=== PATIENT | male | born 1960 | race Caucasian/White ===

== ENCOUNTER → 2023-02-21 | Outpatient (CLI) | payer OTHER ==
[2023-02-21 19:11] LABS: HCT 48.6 % (39.6-50.0); HGB 16.2 g/dL (13.0-17.0); MCH 31.9 pg (27.0-32.0); MCHC 33.3 g/dL (32.0-37.0); MCV 95.7 FL (80.0-97.0); Mean Platelet Volume 11.2 FL (9.5-12.2); NRBC Per 100 WBC 0 X 10*3/uL (0.00-0.01); Platelet Count 195 X 10*3/uL (140-440); RBC 5.08 X 10*6/uL (4.40-5.60); WBC 6.07 X 10*3/uL (4.50-10.00)
[2023-02-21 19:35] LABS: Chol/HDL Ratio 2.97 Ratio; LDL Cholesterol,Calculated 84.6 mg/dL (0.0-131.0); T4, Free (Free Thyroxine) 0.96 ng/dL (0.80-1.80)
[2023-02-21 19:43] LABS: ALT 31 U/L (10-49); AST 37 U/L (14-35); Albumin 3.8 g/dL (3.8-4.9); Alkaline Phosphatase <5 U/L (41-126); Blood Urea Nitrogen 12.7 mg/dL (9.0-27.0); Carbon Dioxide 19.6 mmol/L (21.6-31.8); Chloride 100 mmol/L (96-109); Glucose 89 mg/dL (70-110); Sodium 139 mmol/L (135-145); Total Bilirubin 0.3 mg/dL (0.3-1.2); Total Protein 5.8 g/dL (6.2-8.2)
== END | disposition home or self-care (01) ==
LOC: LABWHC1 15:23
DX: F41.9 Anxiety disorder, unspecified (principal); F32.A Depression, unspecified; N40.0 Benign prostatic hyperplasia without lower urinary tract symptoms
CPT/HCPCS: 36415; 80053; 80061; 83036; 84439; 84443; 85027

== ENCOUNTER → 2023-02-27 | Outpatient (CLI) | payer OTHER ==
[2023-02-27 16:18] LABS: Blood Urea Nitrogen 21.6 mg/dL (9.0-27.0); Carbon Dioxide 27.8 mmol/L (21.6-31.8); Chloride 105 mmol/L (96-109); Chol/HDL Ratio 2.96 Ratio; Glucose 90 mg/dL (70-110); LDL Cholesterol,Calculated 104.8 mg/dL (0.0-131.0); Potassium 4.4 mmol/L (3.5-5.5); Sodium 141 mmol/L (135-145)
[2023-02-27 16:19] LABS: ALT 26 U/L (10-49); AST 28 U/L (14-35); Albumin 3.8 g/dL (3.8-4.9); Alkaline Phosphatase 46 U/L (41-126); Calcium 8.7 mg/dL (8.7-10.3); Globulin 1.9 g/dL (1.6-3.3); T4, Free (Free Thyroxine) 0.88 ng/dL (0.80-1.80); Total Bilirubin 0.4 mg/dL (0.3-1.2); Total Protein 5.7 g/dL (6.2-8.2)
== END | disposition home or self-care (01) ==
LOC: LABWHC1 11:49
PROVIDERS: ATTEND Family Medicine
DX: F41.9 Anxiety disorder, unspecified (principal); N40.0 Benign prostatic hyperplasia without lower urinary tract symptoms; F32.A Depression, unspecified
CPT/HCPCS: 36415; 80053; 80061; 84439; 84443

== ENCOUNTER 2023-05-02 15:40 | Inpatient (IN) | payer MEDICAID, OTHER ==
--- NOTE | 2023-05-02 16:25 | ED ---
General Adult HPI - General Chief complaint: Anxiety Stated complaint: Anxiety Time Seen by Provider: 05/02/23 16:02 Source: patient, RN notes reviewed Mode of arrival: ambulatory Limitations: no limitations - History of Present Illness Initial comments: 62 year old male presents to the emergency department for evaluation of anxiety. Patient states that he has a history of anxiety. He admits to racing thoughts. He is currently on Lexapro and trazadone. He states that he has been on many different medications over the years for his anxiety. He states that he does not have a doctor currently. He does note being hospitalized for his mental health in the past. He denies suicidal or homicidal ideation. Denies any physical complaints at this time including chest pain, shortness of breath. - Related Data Home Medications Medication Instructions Recorded Confirmed Escitalopram Oxalate [Lexapro] 10 mg PO DIRECTED 05/02/23 05/02/23 Tamsulosin [Flomax] 0.4 mg PO DIRECTED 05/02/23 05/02/23 traZODone HCL 200 mg PO DIRECTED 05/02/23 05/02/23 Allergies Allergy/AdvReac Type Severity Reaction Status Date / Time No Known Allergies Allergy Verified 05/02/23 15:56 Review of Systems ROS Statement: Those systems with pertinent positive or pertinent negative responses have been documented in the HPI. ROS Other: All systems not noted in ROS Statement are negative. Past Medical History Past Medical History: Prostate Disorder History of Any Multi-Drug Resistant Organisms: None Reported Past Surgical History: Hernia Repair Past Psychological History: Anxiety Smoking Status: Never smoker Past Alcohol Use History: Rare Past Drug Use History: None Reported General Exam Limitations: no limitations General appearance: alert, in no apparent distress, anxious Head exam: Present: atraumatic, normocephalic, normal inspection Eye exam: Present: normal appearance, PERRL, EOMI. Absent: scleral icterus, conjunctival injection, periorbital swelling Respiratory exam: Present: normal lung sounds bilaterally. Absent: respiratory distress, wheezes, rales, rhonchi, stridor Cardiovascular Exam: Present: regular rate, normal rhythm, normal heart sounds. Absent: systolic murmur, diastolic murmur, rubs, gallop, clicks GI/Abdominal exam: Present: soft. Absent: distended, tenderness, guarding, rebound, rigid Extremities exam: Present: normal inspection, full ROM, normal capillary refill. Absent: tenderness, pedal edema, joint swelling, calf tenderness Back exam: Present: normal inspection Neurological exam: Present: alert, oriented X3 Psychiatric exam: Present: anxious, flat affect Skin exam: Present: warm, dry, intact, normal color. Absent: rash Course Vital Signs 05/02/23 15:50 Temperature 97.7 F Pulse Rate 55 L Respiratory 18 Rate Blood Pressure 160/76 O2 Sat by Pulse 97 Oximetry Medical Decision Making - Medical Decision Making Was pt. sent in by a medical professional or institution (, PA, KINDERGARTEN TUTOR, urgent care, hospital, or correction...) When possible be specific @ -No Did you speak to anyone other than the patient for history (EMS, parent, family, police, friend...)? What history was obtained from this source @ -No Did you review nursing and triage notes (agree or disagree)? Why? @ -I reviewed and agree with nursing and triage notes Were old charts reviewed (outside hosp., previous admission, EMS record, old EKG, old radiological studies, urgent care reports/EKG's, correction records)? Report findings @ -No old charts were reviewed Differential Diagnosis (chest pain, altered mental status, abdominal pain women, abdominal pain men, vaginal bleeding, weakness, fever, dyspnea, syncope, headache, dizziness, GI bleed, back pain, seizure, CVA, palpatations, mental health, musculoskeletal)? @ -Differential Mental Health Depression, anxiety, bipolar, psychosis, schizophrenia, borderline personality, situational depression, adjustment disorder, behavioral disorder, brain tumor, malingering, substance abuse, encephalopathy, medication reaction, dementia, hypothyroidism, degenerative neurologic disorder, lupus.... This is not meant to be all-inclusive list EKG interpreted by me (3pts min.). @ -None X-rays interpreted by me (1pt min.). @ -None done CT interpreted by me (1pt min.). @ -None done U/S interpreted by me (1pt. min.). @ -None done What testing was considered but not performed or refused? (CT, X-rays, U/S, labs)? Why? @ -None What meds were considered but not given or refused? Why? @ -None Did you discuss the management of the patient with other professionals (professionals i.e. , PA, KINDERGARTEN TUTOR, lab, RT, psych nurse, social media content manager, risk intern, teacher, chief scientific officer, egg caser)? Give summary @ -Case discussed with EPS recommends inpatient treatment Was smoking cessation discussed for >3mins.? @ -No Was critical care preformed (if so, how long)? @ -No Were there social determinants of health that impacted care today? How? (Homelessness, low income, unemployed, alcoholism, drug addiction, transportation, low edu. Level, literacy, decrease access to med. care, group home, rehab)? @ -No Was there de-escalation of care discussed even if they declined (Discuss DNR or withdrawal of care, Hospice)? DNR status @ -No What co-morbidities impacted this encounter? (DM, HTN, Smoking, COPD, CAD, Cancer, CVA, ARF, Chemo, Hep., AIDS, mental health diagnosis, sleep apnea, morbid obesity)? @ -None Was patient admitted / discharged? Hospital course, mention meds given and route, prescriptions, significant lab abnormalities, going to OR and other pertinent info. @ -Admitted. Patient presented to the emergency department for evaluation of anxiety. No physical symptoms at this time. UA unremarkable. Patient medically cleared for EPS. EPS evaluated, recommends inpatient treatment. Patient stable at time of admission. Undiagnosed new problem with uncertain prognosis? @ -No Drug Therapy requiring intensive monitoring for toxicity (Heparin, Nitro, Insulin, Cardizem)? @ -No Were any procedures done? @ -No Diagnosis/symptom? @ -Anxiety, depression Acute, or Chronic, or Acute on Chronic? @ -acute Uncomplicated (without systemic symptoms) or Complicated (systemic symptoms)? @ -uncomplicated Side effects of treatment? @ -No Exacerbation, Progression, or Severe Exacerbation? @ -No Poses a threat to life or bodily function? How? (Chest pain, [place], [place], pneumonia, PE, COPD, DKA, ARF, appy, cholecystitis, CVA, Diverticulitis, Homicidal, Suicidal, threat to staff... and all critical care pts) @ -No - Lab Data Lab Results 05/02/23 05/02/23 Range/Units 17:05 21:08 Urine Color Yellow Urine Appearance Cloudy (Clear) Urine pH 5.5 (5.0-8.0) Ur Specific [place] 1.028 (1.001-1.035) Urine Protein Trace H (Negative) Urine Glucose (UA) Negative (Negative) Urine Ketones Trace H (Negative) Urine Blood Negative (Negative) Urine Nitrite Negative (Negative) Urine Bilirubin Negative (Negative) Urine Urobilinogen <2.0 (<2.0) mg/dL Ur Leukocyte Esterase Negative (Negative) Urine RBC 1 (0-5) /hpf Urine WBC 3 (0-5) /hpf Ur Squamous Epith Cells <1 (0-4) /hpf Hyaline Casts 1 (0-2) /lpf Urine Mucus Many H (None) /hpf Urine Opiates Screen Not Detected (NotDetected) Ur Oxycodone Screen Not Detected (NotDetected) Urine Methadone Screen Not Detected (NotDetected) Ur Barbiturates Screen Not Detected (NotDetected) U Tricyclic Antidepress Not Detected (NotDetected) Ur Phencyclidine Scrn Not Detected (NotDetected) Ur Amphetamines Screen Not Detected (NotDetected) U Methamphetamines Scrn Not Detected (NotDetected) U Benzodiazepines Scrn Detected H (NotDetected) Urine Cocaine Screen Not Detected (NotDetected) U Marijuana (THC) Screen Not Detected (NotDetected) SARS-CoV-2 (PCR) Not Detected (Not Detectd) Disposition Clinical Impression: Acute anxiety, Depression Disposition: TRANSFER TO PSYCH HOSP/UNIT Condition: Stable Is patient prescribed a controlled substance at d/c from ED?: No
[2023-05-02] MEDS: LORazepam 1 MG TAB PO STA (16:33)
[2023-05-02 17:41] LABS: Amphetamine Screen,Urine Not Detected (NotDetected); Barbiturate Screen,Urine Not Detected (NotDetected); Benzodiazepines Screen,Urine Detected (NotDetected); Cocaine Screen,Urine Not Detected (NotDetected); Methadone Screen, Urine Not Detected (NotDetected); Opiate Screen,Urine Not Detected (NotDetected); Oxycodone Screen, Urine Not Detected (NotDetected); Phencyclidine Screen,Urine Not Detected (NotDetected); Tricyclic Antidepressant,Urine Not Detected (NotDetected); Urn Cannabinoid Scrn Not Detected (NotDetected)
[2023-05-02 17:45] LABS: Appearance,Urine Cloudy (Clear); Bilirubin,Urine Negative (Negative); Blood,Urine Negative (Negative); Color,Urine Yellow; Glucose,Urine (UA) Negative (Negative); Hyaline Casts,Urine 1 /lpf (0-2); Ketones,Urine Trace (Negative); Leukocyte Esterase,Urine Negative (Negative); Mucus,Urine Many /hpf; Nitrite,Urine Negative (Negative); PH, Urine 5.5 (5.0-8.0); Protein,Urine Trace (Negative); RBC,Urine 1 /hpf (0-5); Specific Gravity,Urine 1.028 (1.001-1.035); Squamous Epithelial Cell,Urine <1 /hpf (0-4); Urobilinogen,Urine <2.0 mg/dL (<2.0); WBC,Urine 3 /hpf (0-5)
[2023-05-02] MEDS: IBUPROFEN 600 MG TAB PO STA (19:48)
[2023-05-02] MEDS: TAMSULOSIN 0.4 MG CAP.ER.24H PO STA (19:48)
[2023-05-02] MEDS ORDERED: ACETAMINOPHEN TAB 325 MG TAB PO PRN (22:49)
[2023-05-02] MEDS ORDERED: MAGNESIUM HYDROXIDE 2,400 MG/30 ML CUP PO PRN (22:49)
[2023-05-02] MEDS ORDERED: HALOPERIDOL LACTATE 5 MG/ML 1 ML VIAL IM PRN (22:54)
[2023-05-02] MEDS ORDERED: LORazepam 2 MG/ML INJ IM PRN (22:57)
[2023-05-02] MEDS: PRAZOSIN 1 MG CAP PO SCH (23:53)
[2023-05-02] MEDS: GABAPENTIN 100 MG CAP PO SCH (23:53)
[2023-05-03] MEDS: traZODone HCL 100 MG TAB PO SCH (00:04)
[2023-05-03] MEDS: IBUPROFEN 600 MG TAB PO PRN (03:33)
[2023-05-03] MEDS: haloperidoL 5 MG TAB PO PRN (03:33)
[2023-05-03] MEDS: LORazepam 1 MG TAB PO PRN (03:33)
[2023-05-03] MEDS: traZODone HCL 100 MG TAB PO ONE (04:04)
--- NOTE | 2023-05-03 05:36 | P.MDCNMH ---
History of Present Illness H&P Date: 05/03/23 Chief Complaint: Medical eval 62-year-old male with anxiety and prostate hyperplasia coming in for evaluation of worsening anxiety and inability to sleep. Patient denies any fevers chills coughing shortness of breath chest pain nausea vomiting denies any abdominal pain or GI bleeding denies any changes in bowel or urinary habits Patient denies any tobacco smoking illicit drugs or heavy alcohol review of systems Pertinent positives as noted in HPI. All other systems were reviewed and are negative on exam Constitutional: No acute distress, Eyes: Anicteric sclerae, moist conjunctiva, Pupils equal round reactive to light Lungs: Clear to auscultation Clear to percussion Normal respiratory effort, no accessory muscle use Cardiovascular: Heart regular in rate and rhythm, No murmurs, gallops, or rubs No peripheral edema Abdominal: Soft Nontender, no guarding, rebound or rigidity Abdomen moving with respiration Normoactive bowel sounds Extremities: No digital cyanosis No clubbing Pedal pulses intact and symmetrical Radial pulses intact and symmetrical No calf tenderness Psychiatric: Alert and oriented to person, place and time Neuro Muscles Strength 5/5 in all 4 extremities Past Medical History Past Medical History: Prostate Disorder History of Any Multi-Drug Resistant Organisms: None Reported Past Surgical History: Hernia Repair Past Psychological History: Anxiety Smoking Status: Never smoker Past Alcohol Use History: Rare Past Drug Use History: None Reported Medications and Allergies Home Medications Medication Instructions Recorded Confirmed Type Escitalopram Oxalate [Lexapro] 10 mg PO DIRECTED 05/02/23 05/02/23 History Tamsulosin [Flomax] 0.4 mg PO DIRECTED 05/02/23 05/02/23 History traZODone HCL 200 mg PO DIRECTED 05/02/23 05/02/23 History Allergies Allergy/AdvReac Type Severity Reaction Status Date / Time No Known Allergies Allergy Verified 05/03/23 04:34 Physical Exam Vitals: Vital Signs Temp Pulse Pulse Resp BP BP Pulse Ox 05/02/23 23:17 97.4 F L 67 18 124/74 98 05/02/23 15:50 97.7 F 55 L 18 160/76 97 Intake and Output 05/02/23 05/02/23 05/03/23 14:59 22:59 06:59 Other: Weight 77.111 kg 76.7 kg Cranial Nerve Examination - Cranial Nerves Cranial Nerve II- Optic: Intact Cranial Nerve III- Oculomotor: Intact Cranial Nerve IV- Trochlear: Intact Cranial Nerve V- Trigeminal: Intact Cranial Nerve - Abducens: Intact Cranial Nerve VII- Facial: Intact Cranial Nerve VIII- Auditory: Intact Cranial Nerve IX- Glossopharyngeal: Intact Cranial Nerve X- Vagus: Intact Cranial Nerve XI- Accessory: Intact Cranial Nerve XII- Hypoglossal: Intact Results Labs: Abnormal Lab Results - Last 24 Hours (Table) 05/02/23 Range/Units 17:05 Urine Protein Trace H (Negative) Urine Ketones Trace H (Negative) Urine Mucus Many H (None) /hpf U Benzodiazepines Scrn Detected H (NotDetected) Assessment and Plan Assessment: Anxiety Insomnia Management per psych Benign prostatic hyperplasia Continue with Flomax Blood work pending Urine drug screen positive for benzos Thank you for this consultation
[2023-05-03 07:28] LABS: Basophils % (A) 0 %; Eosinophils # (A) 0.2 k/uL (0-0.7); Eosinophils % (A) 4 %; HGB 14.8 gm/dL (13.0-17.5); Lymphocytes % (A) 36 %; MCH 32.6 pg (25.0-35.0); MCHC 34.5 g/dL (31.0-37.0); MCV 94.5 fL (80.0-100.0); Mean Platelet Volume 10.4; Monocytes # (A) 0.3 k/uL (0-1.0); Monocytes % (A) 5 %; Neutrophils # (A) 2.9 k/uL (1.3-7.7); Neutrophils % (A) 53 %; Platelet Count 173 k/uL (150-450); RBC 4.54 m/uL (4.30-5.90); RDW 13.1 % (11.5-15.5); WBC 5.6 k/uL (3.8-10.6)
[2023-05-03 07:46] LABS: ALT 14 U/L (4-49); AST 23 U/L (17-59); African American GFR (CKD) 89 (>60 ml/min/1.73 sqM); Albumin 3.5 g/dL (3.5-5.0); Alkaline Phosphatase 50 U/L (38-126); Anion Gap 8 mmol/L; Blood Urea Nitrogen 17 mg/dL (9-20); Calcium 8.6 mg/dL (8.4-10.2); Carbon Dioxide 26 mmol/L (22-30); Chloride 107 mmol/L (98-107); Glucose 91 mg/dL (74-99); Non-African American GFR(CKD) 77 (>60 ml/min/1.73 sqM); Potassium 3.9 mmol/L (3.5-5.1); Sodium 141 mmol/L (137-145); Total Bilirubin 0.9 mg/dL (0.2-1.3)
[2023-05-03] MEDS ORDERED: GABAPENTIN 100 MG CAP PO SCH (09:00)
[2023-05-03] MEDS ORDERED: NICOTINE 14MG/24HR PATCH TRANSDERM SCH (09:00)
--- NOTE | 2023-05-03 09:37 | P.HP ---
Psychiatric H&P - . H&P Date: 05/03/23 History & Physical: Allergies Allergy/AdvReac Type Severity Reaction Status Date / Time No Known Allergies Allergy Verified 05/03/23 04:34 Vital Signs Temp 97.4 F L 05/02/23 23:17 Pulse 67 05/02/23 23:17 Resp 18 05/02/23 23:17 BP 124/74 05/02/23 23:17 Pulse Ox 98 05/02/23 23:17 FiO2 Intake & Output 05/02/23 05/03/23 05/03/23 18:59 06:59 18:59 Weight 77.111 kg 76.7 kg Laboratory Last Values WBC 5.6 k/uL (3.8-10.6) 05/03/23 07:15 RBC 4.54 m/uL (4.30-5.90) 05/03/23 07:15 Hgb 14.8 gm/dL (13.0-17.5) 05/03/23 07:15 Hct 43.0 % (39.0-53.0) 05/03/23 07:15 MCV 94.5 fL (80.0-100.0) 05/03/23 07:15 MCH 32.6 pg (25.0-35.0) 05/03/23 07:15 MCHC 34.5 g/dL (31.0-37.0) 05/03/23 07:15 RDW 13.1 % (11.5-15.5) 05/03/23 07:15 Plt Count 173 k/uL (150-450) 05/03/23 07:15 MPV 10.4 05/03/23 07:15 Neutrophils % 53 % 05/03/23 07:15 Lymphocytes % 36 % 05/03/23 07:15 Monocytes % 5 % 05/03/23 07:15 Eosinophils % 4 % 05/03/23 07:15 Basophils % 0 % 05/03/23 07:15 Neutrophils # 2.9 k/uL (1.3-7.7) 05/03/23 07:15 Lymphocytes # 2.0 k/uL (1.0-4.8) 05/03/23 07:15 Monocytes # 0.3 k/uL (0-1.0) 05/03/23 07:15 Eosinophils # 0.2 k/uL (0-0.7) 05/03/23 07:15 Basophils # 0.0 k/uL (0-0.2) 05/03/23 07:15 Sodium 141 mmol/L (137-145) 05/03/23 07:15 Potassium 3.9 mmol/L (3.5-5.1) 05/03/23 07:15 Chloride 107 mmol/L (98-107) 05/03/23 07:15 Carbon Dioxide 26 mmol/L (22-30) 05/03/23 07:15 Anion Gap 8 mmol/L 05/03/23 07:15 BUN 17 mg/dL (9-20) 05/03/23 07:15 Creatinine 1.03 mg/dL (0.66-1.25) 05/03/23 07:15 Est GFR (CKD-EPI)AfAm 89 (>60 ml/min/1.73 sqM) 05/03/23 07:15 Est GFR (CKD-EPI)NonAf 77 (>60 ml/min/1.73 sqM) 05/03/23 07:15 Glucose 91 mg/dL (74-99) 05/03/23 07:15 Calcium 8.6 mg/dL (8.4-10.2) 05/03/23 07:15 Total Bilirubin 0.9 mg/dL (0.2-1.3) 05/03/23 07:15 AST 23 U/L (17-59) 05/03/23 07:15 ALT 14 U/L (4-49) 05/03/23 07:15 Alkaline Phosphatase 50 U/L (38-126) 05/03/23 07:15 Total Protein 6.0 g/dL (6.3-8.2) L 05/03/23 07:15 Albumin 3.5 g/dL (3.5-5.0) 05/03/23 07:15 TSH 2.090 mIU/L (0.465-4.680) 05/03/23 07:15 Urine Color Yellow 05/02/23 17:05 Urine Appearance Cloudy (Clear) 05/02/23 17:05 Urine pH 5.5 (5.0-8.0) 05/02/23 17:05 Ur Specific [place] 1.028 (1.001-1.035) 05/02/23 17:05 Urine Protein Trace (Negative) H 05/02/23 17:05 Urine Glucose (UA) Negative (Negative) 05/02/23 17:05 Urine Ketones Trace (Negative) H 05/02/23 17:05 Urine Blood Negative (Negative) 05/02/23 17:05 Urine Nitrite Negative (Negative) 05/02/23 17:05 Urine Bilirubin Negative (Negative) 05/02/23 17:05 Urine Urobilinogen <2.0 mg/dL (<2.0) 05/02/23 17:05 Ur Leukocyte Esterase Negative (Negative) 05/02/23 17:05 Urine RBC 1 /hpf (0-5) 05/02/23 17:05 Urine WBC 3 /hpf (0-5) 05/02/23 17:05 Ur Squamous Epith Cells <1 /hpf (0-4) 05/02/23 17:05 Hyaline Casts 1 /lpf (0-2) 05/02/23 17:05 Urine Mucus Many /hpf (None) H 05/02/23 17:05 Urine Opiates Screen Not Detected (NotDetected) 05/02/23 17:05 Ur Oxycodone Screen Not Detected (NotDetected) 05/02/23 17:05 Urine Methadone Screen Not Detected (NotDetected) 05/02/23 17:05 Ur Barbiturates Screen Not Detected (NotDetected) 05/02/23 17:05 U Tricyclic Antidepress Not Detected (NotDetected) 05/02/23 17:05 Ur Phencyclidine Scrn Not Detected (NotDetected) 05/02/23 17:05 Ur Amphetamines Screen Not Detected (NotDetected) 05/02/23 17:05 U Methamphetamines Scrn Not Detected (NotDetected) 05/02/23 17:05 U Benzodiazepines Scrn Detected (NotDetected) H 05/02/23 17:05 Urine Cocaine Screen Not Detected (NotDetected) 05/02/23 17:05 U Marijuana (THC) Screen Not Detected (NotDetected) 05/02/23 17:05 SARS-CoV-2 (PCR) Not Detected (Not Detectd) 05/02/23 21:08 05/03/23 09:32 This is a psychiatric assessment Lewis Torres who is a 62-year-old male who presents to the ER with acute anxiety Patient remains unclear about his current symptomatology and onset He says that he is being having issues with anxiety for the last few months however patient has been tried on several different psychotropic medications for years He states that the [place] [facility] in [place] and is easy to access He says that he has no other primary care physician or psychiatrist for follow- up and that he had no other resource but to come to the ER Patient is unable to give any specific reason for his anxiety He states that he currently lives alone He states that he has been exposed 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 He denies any suicidal or homicidal ideation he states that he currently is somewhat estranged from his family members were busy in their own lives He says that he usually spends most of his time at home watching some TV He denies any substance use Past history personal social history Patient remains very vague and superficial and at this time does not use any clear picture about his current problems or past history of treatment Patient however is on several different psychotropic medications that include gabapentin and Celexa Patient also seems to have been tried on several different antidepressants in the past Mental status examination: He was a middle-aged male who looks somewhat older for his age. Patient presents a somewhat of a disheveled appearance Affect at this time appears to be fair Speech was clear coherent and relevant Thought processes are goal-directed sequential and logical Patient however does not seem to be able to give much of any specific info rmation about his problems or issues Formal and operational judgment and insight remains questionable Diagnostic impression: Adjustment disorder with anxiety features Depressive disorder unspecified Rule out bipolar disorder depressed type Personality disorder with borderline traits Plan: The patient will beon the unit for further evaluation and treatment Therapy will be focused on providing supportive care and brings coping abilities with a multimodal treatment Patient will also participate in on the rodriguez activities individual milieu group OT RT PT and pharmacotherapy Approximate the stay would be 1-3 weeks Patient sign in voluntarily Medications: We'll initially increase the gabapentin to 300 mg 3 times a day We will also increase his Celexa to 20 mg daily Patient may also benefit from the addition affect mood stabilizer and would recommend starting him on Depakote 250 mg 3 times a day to start within titrated to response Discussed effects and side effects of medication which she appears to understand well Patient has his own place to live and social studies department chair will be in all in making appropriate contacts for follow-up and treatment Fran Drummond M.D.
[2023-05-03] MEDS: TAMSULOSIN 0.4 MG CAP.ER.24H PO SCH (09:56)
[2023-05-03] MEDS: ESCITALOPRAM 10 MG TAB PO SCH (10:09)
[2023-05-03 12:17] VITALS: BMI 23.6
[2023-05-03 14:14] LABS: Chol/HDL Ratio 2.63 Ratio; LDL Cholesterol,Calculated 59.8 mg/dL (0.0-131.0)
[2023-05-03] MEDS: DIVALPROEX 250 MG TABLET.DR PO SCH (16:46)
[2023-05-03] MEDS: GABAPENTIN 300 MG CAP PO SCH (16:46)
[2023-05-03] MEDS ORDERED: TAMSULOSIN 0.4 MG CAP.ER.24H PO SCH (18:30)
[2023-05-04] MEDS: ESCITALOPRAM 20 MG TAB PO SCH (09:02)
--- NOTE | 2023-05-04 10:26 | P.PN ---
Subjective Progress Note Date: 05/04/23 Principal diagnosis: Diagnostic impression: Adjustment disorder with anxiety features Depressive disorder unspecified Rule out bipolar disorder depressed type Personality disorder with borderline traits Patient Name: Lewis Torres Date of : 1960 Patient Status: Inpatient Attending Provider: Tu Whitney Date: 05/04/23 Subjective data: The patient was seen chart was reviewed and case discussed with nursing staff Patient reports that the gabapentin seem to do not have much effect in the nighttime and that he slept while but that in the daytime difficult to sleepy special after the afternoon dose He has his temper first to have a lower dosage Emotionally states that he feels about the same Says his anxiety seems to fluctuate Patient denies any auditory or visual hallucinations He states that his depression goes up and down Did not acknowledge any suicidal ideations or plans Mental status examination: He was a middle-aged male who looks somewhat older for his age. Patient presents a somewhat of a disheveled appearance Affect at this time appears to be fair Speech was clear coherent and relevant Thought processes are goal-directed sequential and logical Patient however does not seem to be able to give much of any specific information about his problems or issues Formal and operational judgment and insight remains questionable Diagnostic impression: Adjustment disorder with anxiety features Depressive disorder unspecified Rule out bipolar disorder depressed type Personality disorder with borderline traits Plan: The patient will will be hospitalized on the unit for further evaluation and treatment Therapy will be focused on providing supportive care and brings coping abilities with a multimodal treatment Patient will also participate in on the rodriguez activities individual milieu group OT RT PT and pharmacotherapy Approximate the stay would be 1-3 weeks Patient sign in voluntarily Medications: We'll decrease the gabapentin to 100 mg mg 3 times a day Celexa to 20 mg daily Patient may also benefit from the addition affect mood stabilizer and would recommend starting him on Depakote 250 mg 3 times a day to start within titrated to response Discussed effects and side effects of medication which she appears to understand well Patient has his own place to live and social security benefits interviewer will be in all in making appropriate contacts for follow-up and [facility] Objective - Vital Signs Vital signs: Vital Signs Temp 98.1 F 05/04/23 06:54 Pulse 61 05/04/23 06:54 Resp 18 05/04/23 06:54 BP 120/76 05/04/23 06:54 Pulse Ox 97 05/03/23 22:15 FiO2 Intake & Output 05/03/23 05/04/23 05/04/23 17:59 06:59 18:59 Intake Total Balance Weight Intake: Oral - Labs CBC & Chem 7: 05/03/23 07:15 05/03/23 07:15
[2023-05-04] MEDS: GABAPENTIN 100 MG CAP PO SCH (15:50)
--- NOTE | 2023-05-05 09:11 | P.PN ---
Subjective Progress Note Date: 05/05/23 Principal diagnosis: Diagnostic impression: Adjustment disorder with anxiety features Depressive disorder unspecified Rule out bipolar disorder depressed type Personality disorder with borderline traits Patient Name: Lewis Torres Date of : 1960 Patient Status: Inpatient Attending Provider: Tu Whitney Date: 05/05/23 Subjective data: The patient was seen chart was reviewed and case discussed with nursing staff Patient reports that his anxiety still remains high that he still feels anxious and frustrated easily Admits that his self-esteem and confidence has been low He admits having some difficulty making decisions Patient does not appear to be very forthcoming about any specific causes or tri ggers Mental status examination: He was a middle-aged male who looks somewhat older for his age. Patient presents a somewhat of a disheveled appearance Affect at this time appears to be fair Speech was clear coherent and relevant Thought processes are goal-directed sequential and logical Patient however does not seem to be able to give much of any specific information about his problems or issues Formal and operational judgment and insight remains questionable Diagnostic impression: Adjustment disorder with anxiety features Depressive disorder unspecified Rule out bipolar disorder depressed type Personality disorder with borderline traits Plan: The patient will will be hospitalized on the unit for further evaluation and treatment Therapy will be focused on providing supportive care and brings coping abilities with a multimodal treatment Patient will also participate in on the rodriguez activities individual milieu group OT RT PT and pharmacotherapy Approximate the stay would be 1-3 weeks Patient sign in voluntarily Medications: We'll decrease the gabapentin to 100 mg mg 3 times a day Celexa to 20 mg daily Patient may also benefit from the addition affect mood stabilizer and would r ecommend starting him on Depakote 250 mg 3 times a day to start within titrated to response Discussed effects and side effects of medication which she appears to understand well Patient has his own place to live and social worker will be in all in making appropriate contacts for follow-up and treatment Fran Drummond M.D. Objective - Vital Signs Vital signs: Vital Signs Temp 98.2 F 05/05/23 05:52 Pulse 55 L 05/05/23 09:05 Resp 16 05/05/23 05:52 BP 105/57 05/05/23 09:05 Pulse Ox 98 05/05/23 05:52 FiO2 Intake & Output 05/04/23 05/05/23 05/05/23 18:59 06:59 18:59 Weight 77 kg - Labs CBC & Chem 7: 05/03/23 07:15 05/03/23 07:15
[2023-05-05] MEDS: IBUPROFEN 200 MG TAB PO PRN (16:17)
--- NOTE | 2023-05-06 09:55 | P.PN ---
Subjective Progress Note Date: 05/06/23 Principal diagnosis: Diagnostic impression: Adjustment disorder with anxiety features Depressive disorder unspecified Rule out bipolar disorder depressed type Personality disorder with borderline traits Patient Name: Lewis Torres Date of : 1960 Patient Status: Inpatient Attending Provider: Tu Whitney Date: 05/06/23 Subjective data: The patient was seen chart was reviewed and case discussed with nursing staff Patient reports that he does not have any homicidal thoughts and that he never had any thoughts of wanting to hurt anyone else Patient denies that he had any rage problems when he came to the hospital Patient stated that his problem has been mainly anxiety He says that it seems to fluctuate and that he seems to get worse as the day progresses Patient is unable to relate to any specific situation or issues and remains very vague and not very forthcoming Mental status examination: He was a middle-aged male who looks somewhat older for his age. Patient presents a somewhat of a disheveled appearance Affect at this time appears to be fair Speech was clear coherent and relevant Thought processes are goal-directed sequential and logical patient however remains very vague and superficial Patient however does not seem to be able to give much of any specific information about his problems or issues Formal and operational judgment and insight remains questionable Diagnostic impression: Adjustment disorder with anxiety features Depressive disorder unspecified Rule out bipolar disorder depressed type Personality disorder with borderline traits Plan: The patient will will be hospitalized on the unit for further evaluation and treatment Therapy will be focused on providing supportive care and brings coping abilities with a multimodal treatment Patient will also participate in on the rodriguez activities individual milieu group OT RT PT and pharmacotherapy Approximate the stay would be 1-3 weeks Patient sign in voluntarily Medications: We'll decrease the gabapentin to 100 mg mg 3 times a day Celexa to 20 mg daily Patient was advised to start keeping a journal to jot down situations that bring up the anxiety Patient may also benefit from the addition affect mood stabilizer and would recommend starting him on Depakote 250 mg 3 times a day to start within titrated to response Discussed effects and side effects of medication which she appears to understand well Patient has his own place to live and social welfare administrator will be in all in making appropriate contacts for follow-up and treatment Fran Drummond M.D. Objective - Vital Signs Vital signs: Vital Signs Temp 97.4 F L 05/06/23 05:29 Pulse 57 L 05/06/23 05:29 Resp 16 05/06/23 05:29 BP 108/54 05/06/23 05:29 Pulse Ox 98 05/05/23 05:52 FiO2 Intake & Output 05/05/23 05/06/23 05/06/23 18:59 06:59 18:59 Intake Total 300 Balance 300 Intake: Oral 300 - Labs CBC & Chem 7: 05/03/23 07:15 05/03/23 07:15
[2023-05-07 09:24] VITALS: BP 100/51; PULSE 63; RESP 18; TEMP 97.7
--- NOTE | 2023-05-07 10:35 | P.DS ---
Providers Date of admission: 05/02/23 22:45 Expected date of discharge: 05/07/23 Attending physician: Tu Whitney MD Consults: 05/02/23 22:49 Consult Physician Routine Consulting Provider: Ree Trimble Consult Reason/Comments: H&P for mental health admission Do you want consulting provider notified?: Yes Primary care physician: Stated None - Discharge Diagnosis(es) (1) Depressive disorder Current Visit: Yes Status: Acute Priority: High (2) Personality disorder, unspecified Current Visit: Yes Status: Acute Priority: High (3) Generalized anxiety disorder Current Visit: Yes Status: Acute Priority: High Hospital Course: Admission HPI: Admission note was completed by Dr Drummond] "This is a psychiatric assessment Lewis Torres who is a 62-year-old male who presents to the ER with acute anxiety Patient remains unclear about his current symptomatology and onset He says that he is being having issues with anxiety for the last few months however patient has been tried on several different psychotropic medications for years He states that the DC facilities in [place] and is easy to access He says that he has no other primary care physician or psychiatrist for follow- up and that he had no other resource but to come to the ER Patient is unable to give any specific reason for his anxiety He states that he currently lives alone He states that 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 Patient got along well with other patients on the unit and followed unit protocol. Patient was compliant with the medications and denied any side effects throughout hospital course. Patient was started on Lexapro and increased to a dose of 20 mg daily for mood/anxiety. Patient was placed on gabapentin however was not very effective and was discontinued. Depakote increased and change dose to 750 mg nightly for sleep/mood stabilization/anxiety, trazodone 200 mg nightly for insomnia/mood, prazosin 1 mg nightly for nightmares/sleep, buspar 30 mg bid for anxiety, vistareil prn for anxiety. Patient spoke of his stressors and engaged in therapy both group and individual. Patient was also seen by medical team for history and physical exam. Patient was fairly focused on controlled medications during the hospitalization including benzodiazepines. Throughout the course of the hospitalization patient gradually improved with regards to mood, anxiety, sleep and returned back to their baseline level of functioning. On the day of discharge patient denied any suicidal or homicidal ideations intent or plan denied any auditory or visual hallucinations. Patient endorsed wanting to live for his future and his health. The patient does claim that he does have a gun at home however it is locked away. Patient denied any paranoia and did not endorse any delusions. Patient does not have a significant history of substance abuse and was counseled on abstaining from all substances including alcohol and marijuana. Patient was also counseled on the medications and need for regular compliance and was encouraged to follow-up with their outpatient appointment for mental health and also for primary care. Prior to discharge a family meeting will be arranged by social worker assistant to answer any questions and ensure safety upon discharge. Mental status exam: General Appearance: Patient appears to be thin, has a bryant, wearing glasses, stated age is alert, pleasant, and cooperative. Patient is in no acute distress and has improved hygiene and grooming Behavior: Patient is calmly seated without any agitated behavior. Superficial at times and medication seeking. Speech: Patient's speech is fluent and nonpressured. Mood/Affect: Patient reports their mood is "good", affect is congruent Suicidality/Homicidality: Patient denies having any suicidal or homicidal ideation intent or plan. Perceptions: Patient denies any auditory or visual hallucinations. Though content/process: There is no evidence of any delusional thought content and thought process is linear and goal-directed. Focused on controlled medications. Memory and concentration: AOX3, grossly intact for the purposes of this session. Can spell "WORLD" backwards correctly. 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 Patient will remain at chronically elevated risk for harm to self and/or others due to his impulsivity. -Continue medications: Continue with Lexapro 20 mg daily for mood/anxiety, gabapentin was discontinued. Depakote changed to 750 mg nightly for sleep/mood stabilization/anxiety, trazodone 200 mg nightly for mood/insomnia, prazosin 1 mg nightly for nightmares/sleep, BuSpar 30 mg twice daily for anxiety, Vistaril twice daily as needed for anxiety. -Patient was counseled on the need for medication compliance and appropriate follow-up at mental health and also primary care for medical issues. Patient verbalized understanding and agreed. -Social work to arrange for and conduct family meeting to ensure safety upon discharge and answer any questions/concerns. Social work also to arrange for patients follow up appointments with [facility] for psychiatric care along with follow up with primary care provider. -Patient counseled on abstaining from recreational drugs and marijuana and alcohol. Was informed/educated on the adverse effects on their physical and mental health. Patient verbally agreed and understood. -Patient was instructed to return to the hospital or seek immediate medical care if their psychiatric or medical symptoms do worsen or reoccur. ] Allergies Allergy/AdvReac Type Severity Reaction Status Date / Time No Known Allergies Allergy Verified 05/03/23 04:34 Laboratory Results WBC 5.6 k/uL (3.8-10.6) 05/03/23 07:15 RBC 4.54 m/uL (4.30-5.90) 05/03/23 07:15 Hgb 14.8 gm/dL (13.0-17.5) 05/03/23 07:15 Hct 43.0 % (39.0-53.0) 05/03/23 07:15 MCV 94.5 fL (80.0-100.0) 05/03/23 07:15 MCH 32.6 pg (25.0-35.0) 05/03/23 07:15 MCHC 34.5 g/dL (31.0-37.0) 05/03/23 07:15 RDW 13.1 % (11.5-15.5) 05/03/23 07:15 Plt Count 173 k/uL (150-450) 05/03/23 07:15 MPV 10.4 05/03/23 07:15 Neutrophils % 53 % 05/03/23 07:15 Lymphocytes % 36 % 05/03/23 07:15 Monocytes % 5 % 05/03/23 07:15 Eosinophils % 4 % 05/03/23 07:15 Basophils % 0 % 05/03/23 07:15 Neutrophils # 2.9 k/uL (1.3-7.7) 05/03/23 07:15 Lymphocytes # 2.0 k/uL (1.0-4.8) 05/03/23 07:15 Monocytes # 0.3 k/uL (0-1.0) 05/03/23 07:15 Eosinophils # 0.2 k/uL (0-0.7) 05/03/23 07:15 Basophils # 0.0 k/uL (0-0.2) 05/03/23 07:15 Sodium 141 mmol/L (137-145) 05/03/23 07:15 Potassium 3.9 mmol/L (3.5-5.1) 05/03/23 07:15 Chloride 107 mmol/L (98-107) 05/03/23 07:15 Carbon Dioxide 26 mmol/L (22-30) 05/03/23 07:15 Anion Gap 8 mmol/L 05/03/23 07:15 BUN 17 mg/dL (9-20) 05/03/23 07:15 Creatinine 1.03 mg/dL (0.66-1.25) 05/03/23 07:15 Est GFR (CKD-EPI)AfAm 89 (>60 ml/min/1.73 sqM) 05/03/23 07:15 Est GFR (CKD-EPI)NonAf 77 (>60 ml/min/1.73 sqM) 05/03/23 07:15 Glucose 91 mg/dL (74-99) 05/03/23 07:[address] Glu mg/dL 111 mg/dL 05/03/23 07:15 Hemoglobin A1c 5.5 % (<=6.0) 05/03/23 07:15 Calcium 8.6 mg/dL (8.4-10.2) 05/03/23 07:15 Total Bilirubin 0.9 mg/dL (0.2-1.3) 05/03/23 07:15 AST 23 U/L (17-59) 05/03/23 07:15 ALT 14 U/L (4-49) 05/03/23 07:15 Alkaline Phosphatase 50 U/L (38-126) 05/03/23 07:15 Total Protein 6.0 g/dL (6.3-8.2) L 05/03/23 07:15 Albumin 3.5 g/dL (3.5-5.0) 05/03/23 07:15 Triglycerides 66.50 mg/dL (0.00-149.00) 05/03/23 07:15 Cholesterol 118.00 mg/dL (0.00-200.00) 05/03/23 07:15 LDL Cholesterol, Calc 59.8 mg/dL (0.0-131.0) 05/03/23 07:15 VLDL Cholesterol, Calc 13.30 mg/dL (5.00-40.00) 05/03/23 07:15 HDL Cholesterol 44.90 mg/dL (40.00-60.00) 05/03/23 07:15 Cholesterol/HDL Ratio 2.63 Ratio 05/03/23 07:15 TSH 2.090 mIU/L (0.465-4.680) 05/03/23 07:15 Urine Color Yellow 05/02/23 17:05 Urine Appearance Cloudy (Clear) 05/02/23 17:05 Urine pH 5.5 (5.0-8.0) 05/02/23 17:05 Ur Specific [place] 1.028 (1.001-1.035) 05/02/23 17:05 Urine Protein Trace (Negative) H 05/02/23 17:05 Urine Glucose (UA) Negative (Negative) 05/02/23 17:05 Urine Ketones Trace (Negative) H 05/02/23 17:05 Urine Blood Negative (Negative) 05/02/23 17:05 Urine Nitrite Negative (Negative) 05/02/23 17:05 Urine Bilirubin Negative (Negative) 05/02/23 17:05 Urine Urobilinogen <2.0 mg/dL (<2.0) 05/02/23 17:05 Ur Leukocyte Esterase Negative (Negative) 05/02/23 17:05 Urine RBC 1 /hpf (0-5) 05/02/23 17:05 Urine WBC 3 /hpf (0-5) 05/02/23 17:05 Ur Squamous Epith Cells <1 /hpf (0-4) 05/02/23 17:05 Hyaline Casts 1 /lpf (0-2) 05/02/23 17:05 Urine Mucus Many /hpf (None) H 05/02/23 17:05 Urine Opiates Screen Not Detected (NotDetected) 05/02/23 17:05 Ur Oxycodone Screen Not Detected (NotDetected) 05/02/23 17:05 Urine Methadone Screen Not Detected (NotDetected) 05/02/23 17:05 Ur Barbiturates Screen Not Detected (NotDetected) 05/02/23 17:05 U Tricyclic Antidepress Not Detected (NotDetected) 05/02/23 17:05 Ur Phencyclidine Scrn Not Detected (NotDetected) 05/02/23 17:05 Ur Amphetamines Screen Not Detected (NotDetected) 05/02/23 17:05 U Methamphetamines Scrn Not Detected (NotDetected) 05/02/23 17:05 U Benzodiazepines Scrn Detected (NotDetected) H 05/02/23 17:05 Urine Cocaine Screen Not Detected (NotDetected) 05/02/23 17:05 U Marijuana (THC) Screen Not Detected (NotDetected) 05/02/23 17:05 SARS-CoV-2 (PCR) Not Detected (Not Detectd) 05/02/23 21:08 Vital Signs Temp 97.7 F 05/07/23 06:00 Pulse 63 05/07/23 06:00 Resp 18 05/07/23 06:00 BP 100/51 05/07/23 06:00 Pulse Ox 98 05/05/23 05:52 FiO2 Intake & Output 05/06/23 05/07/23 05/07/23 18:59 06:59 18:59 Intake Total 300 Balance 300 Intake: Oral 300 Patient Condition at Discharge: Stable Plan - Discharge Summary Discharge Rx Participant: Yes New Discharge Prescriptions: New Ibuprofen [Advil] 200 mg PO Q6HR PRN tab PRN Reason: Pain Divalproex [Depakote] 750 mg PO DAILY 14 Days #42 tab traZODone HCL [Desyrel] 200 mg PO HS 14 Days #28 tab Escitalopram [Lexapro] 20 mg PO DAILY 14 Days #14 tab Prazosin [Minipress] 1 mg PO HS 14 Days #14 cap Ibuprofen [Motrin] 400 mg PO Q6HR PRN tab PRN Reason: Pain busPIRone HCL [Buspar] 30 mg PO BID 14 Days #28 tablet hydrOXYzine pamoate [Vistaril] 50 mg PO BID PRN 14 Days #28 capsule PRN Reason: Anxiety Continue Tamsulosin [Flomax] 0.4 mg PO DIRECTED Discontinued traZODone HCL 200 mg PO DIRECTED Escitalopram Oxalate [Lexapro] 10 mg PO DIRECTED Discharge Medication List Tamsulosin [Flomax] 0.4 mg PO DIRECTED 05/02/23 [History] Divalproex [Depakote] 750 mg PO DAILY 14 Days #42 tab 05/07/23 [Rx] Escitalopram [Lexapro] 20 mg PO DAILY 14 Days #14 tab 05/07/23 [Rx] Ibuprofen [Advil] 200 mg PO Q6HR PRN tab 05/07/23 [Rx] Ibuprofen [Motrin] 400 mg PO Q6HR PRN tab 05/07/23 [Rx] Prazosin [Minipress] 1 mg PO HS 14 Days #14 cap 05/07/23 [Rx] busPIRone HCL [Buspar] 30 mg PO BID 14 Days #28 tablet 05/07/23 [Rx] hydrOXYzine pamoate [Vistaril] 50 mg PO BID PRN 14 Days #28 capsule 05/07/23 [Rx] traZODone HCL [Desyrel] 200 mg PO HS 14 Days #28 tab 05/07/23 [Rx] Follow up Appointment(s)/Referral(s): [facility]] - 1 Week Activity/Diet/Wound Care/Special Instructions: Avoid the use of street drugs and alcohol. Take all medications as prescribed. When you are in need of refills on your medications, please contact your medical provider and/or outpatient psychiatrist/provider to have this done. Please go to your scheduled outpatient appointment for aftercare treatment. If symptoms return or become worse, call the crisis line at and/or go to the nearest emergency room for evaluation. National Suicide Hotline 148. Discharge Disposition: HOME SELF-CARE
[2023-05-07] MEDS: MAG HYDROX/AL HYDROX/SIMETH 355 ML BOTTLE PO PRN (11:22)
[2023-05-07] MEDS: busPIRone HCl 10 MG TAB PO SCH (11:47)
[2023-05-07] MEDS: IBUPROFEN 400 MG TAB PO PRN (12:21)
[2023-05-07] MEDS ORDERED: DIVALPROEX 250 MG TABLET.DR PO SCH (21:00)
== END 2023-05-07 12:35 | disposition home or self-care (01) | DRG 755 ==
LOC: EC 15:40 → 3MHU 22:45
PROVIDERS: ADMIT Psychiatry & Neurology Psychiatry; ATTEND Psychiatry & Neurology Psychiatry
DX: F43.23 Adjustment disorder with mixed anxiety and depressed mood (principal); F41.1 Generalized anxiety disorder; G47.00 Insomnia, unspecified; Z79.899 Other long term (current) drug therapy; F60.3 Borderline personality disorder; Z11.52 Encounter for screening for COVID-19
CPT/HCPCS: 80053; 80061; 80306; 81001; 82075; 83036; 84443; 85025; 87635; 99285

== ENCOUNTER 2023-05-10 18:41 | Emergency (ER) | payer OTHER ==
--- NOTE | 2023-05-10 19:11 | ED ---
Psych HPI <Harjinder Mejía - Last Filed: 05/11/23 12:05> - General Source: patient, RN notes reviewed Mode of arrival: ambulatory <Sandi Badillo - Last Filed: 05/11/23 12:11> - General Chief Complaint: Psychiatric Symptoms Stated Complaint: anxiety Time Seen by Provider: 05/10/23 18:55 - History of Present Illness Initial Comments: 61-year-Old male presents to the emergency department chief complaint of "having thoughts that aren't his" and increasing thought of anxiety. currently denies any suicidal or homicidal ideations, denies that the thoughts patient admits that he has been hospitalized in the past for similar symptoms where he felt more safe and able to express his emotions. Denies other medical illnesses such as chest pain, nausea, fevers, abdominal pain. Denies any illicit drug or alcohol use. (Sandi Badillo) - Related Data Home Medications Medication Instructions Recorded Confirmed Tamsulosin [Flomax] 0.4 mg PO DAILY 05/02/23 05/11/23 Previous Rx's Medication Instructions Recorded Divalproex [Depakote] 750 mg PO DAILY 14 Days #42 tab 05/07/23 Escitalopram [Lexapro] 20 mg PO DAILY 14 Days #14 tab 05/07/23 Prazosin [Minipress] 1 mg PO HS 14 Days #14 cap 05/07/23 busPIRone HCL [Buspar] 30 mg PO BID 14 Days #28 tablet 05/07/23 hydrOXYzine pamoate [Vistaril] 50 mg PO BID PRN 14 Days #28 05/07/23 capsule traZODone HCL [Desyrel] 200 mg PO HS 14 Days #28 tab 05/07/23 Allergies Allergy/AdvReac Type Severity Reaction Status Date / Time No Known Allergies Allergy Verified 05/11/23 11:26 Review of Systems ROS Other: All systems not noted in ROS Statement are negative. <Harjinder Mejía - Last Filed: 05/11/23 12:05> ROS Other: All systems not noted in ROS Statement are negative. <Sandi Badillo - Last Filed: 05/11/23 12:11> ROS Statement: Those systems with pertinent positive or pertinent negative responses have been documented in the HPI. Past Medical History Past Medical History: Prostate Disorder History of Any Multi-Drug Resistant Organisms: None Reported Past Surgical History: Hernia Repair Past Psychological History: Anxiety Smoking Status: Never smoker Past Alcohol Use History: Rare Past Drug Use History: None Reported <Sandi Badillo - Last Filed: 05/11/23 12:11> General Exam Limitations: no limitations General appearance: alert, in no apparent distress Head exam: Present: atraumatic, normocephalic, normal inspection Eye exam: Present: normal appearance, PERRL, EOMI. Absent: scleral icterus, conjunctival injection, periorbital swelling ENT exam: Present: normal exam, mucous membranes moist Neck exam: Present: normal inspection. Absent: tenderness, meningismus, lymphadenopathy Respiratory exam: Present: normal lung sounds bilaterally. Absent: respiratory distress, wheezes, rales, rhonchi, stridor Cardiovascular Exam: Present: regular rate, normal rhythm, normal heart sounds. Absent: systolic murmur, diastolic murmur, rubs, gallop, clicks GI/Abdominal exam: Present: soft, normal bowel sounds. Absent: distended, tenderness, guarding, rebound, rigid Extremities exam: Present: normal inspection, full ROM, normal capillary refill. Absent: tenderness, pedal edema, joint swelling, calf tenderness Back exam: Present: normal inspection Neurological exam: Present: alert, oriented X3, CN II-XII intact Psychiatric exam: Present: normal affect, normal mood Skin exam: Present: warm, dry, intact, normal color. Absent: rash <Sandi Badillo - Last Filed: 05/11/23 12:11> Course <Sandi Badillo - Last Filed: 05/11/23 12:11> Vital Signs 05/10/23 05/11/23 18:43 08:17 Temperature 98 F 98.4 F Pulse Rate 42 L 67 Respiratory 18 16 Rate Blood Pressure 121/42 128/71 O2 Sat by Pulse 98 97 Oximetry - Reevaluation(s) Reevaluation #1: 05/10/23 20:19 APS has been contacted, and they are available to speak with the patient in the morning on 05/10 (Sandi Bdaillo) Reevaluation #2: went to reevaluate for headache and anxiety, patient is soundly asleep in room. 05/10/23 22:08 (Sandi Badillo) Medical Decision Making <Sandi Badillo - Last Filed: 05/11/23 12:11> - Medical Decision Making Was pt. sent in by a medical professional or institution (, [facility], PRECISION LATHE OPERATOR, urgent care, hospital, or custodial...) When possible be specific @ -No Did you speak to anyone other than the patient for history (EMS, parent, family, police, friend...)? What history was obtained from this source @ -No Did you review nursing and triage notes (agree or disagree)? Why? @ -I reviewed and agree with nursing and triage notes Were old charts reviewed (outside hosp., previous admission, EMS record, old EKG, old radiological studies, urgent care reports/EKG's, custodial records)? Report findings @ -Previous emergency department visit reviewed beginning of April 2023. Differential Diagnosis (chest pain, altered mental status, abdominal pain women, abdominal pain men, vaginal bleeding, weakness, fever, dyspnea, syncope, headache, dizziness, GI bleed, back pain, seizure, CVA, palpatations, mental health, musculoskeletal)? @ -Differential Mental Health Depression, anxiety, bipolar, psychosis, schizophrenia, borderline personality, situational depression, adjustment disorder, behavioral disorder, brain tumor, malingering, substance abuse, encephalopathy, medication reaction, dementia, hypothyroidism, degenerative neurologic disorder, lupus.... This is not meant to be all-inclusive list EKG interpreted by me (3pts min.). @ -None X-rays interpreted by me (1pt min.). @ -None done CT interpreted by me (1pt min.). @ -None done U/S interpreted by me (1pt. min.). @ -None done What testing was considered but not performed or refused? (CT, X-rays, U/S, labs)? Why? @ -None What meds were considered but not given or refused? Why? @ -None Did you discuss the management of the patient with other professionals (professionals i.e. , [facility], PRECISION LATHE OPERATOR, lab, RT, psych nurse, social media executive, intellectual property lawyer, teacher, toxics program officer, pillowcase folder)? Give summary @ -PS discussed with patient safety plan to safely return home's time. Inpatient psychiatric hospitalization is not recommended. continue to follow-up with outpatient psychiatry for further evaluation and treatment Was smoking cessation discussed for >3mins.? @ -No Was critical care preformed (if so, how long)? @ -No Were there social determinants of health that impacted care today? How? (Homelessness, low income, unemployed, alcoholism, drug addiction, transportation, low edu. Level, literacy, decrease access to med. care, [facility], rehab)? @ -No Was there de-escalation of care discussed even if they declined (Discuss DNR or withdrawal of care, Hospice)? DNR status @ -No What co-morbidities impacted this encounter? (DM, HTN, Smoking, COPD, CAD, Cancer, CVA, ARF, Chemo, Hep., AIDS, mental health diagnosis, sleep apnea, morbid obesity)? @ -None Was patient admitted / discharged? Hospital course, mention meds given and route, prescriptions, significant lab abnormalities, going to OR and other pertinent info. @ 62-year-old male chief complaint of anxiety. Patient's urine tox screen breath alcohol level 0. comprehensive complete physical exam completed with no acute findings, patient medically cleared. EPS is unable to visit the patient until the morning. Patient states that his anxiety has been increasing in would like medication to help calm his nerves. He is also complaining of a headache. patient was given Xanax and ibuprofen with relief in symptoms. Patient signed out to attending, Dr. Chavez at 22:45 for disposition and further treatment. Undiagnosed new problem with uncertain prognosis? @ -No Drug Therapy requiring intensive monitoring for toxicity (Heparin, Nitro, Insulin, Cardizem)? @ -No Were any procedures done? @ -No Diagnosis/symptom? @ -anxiety Acute, or Chronic, or Acute on Chronic? @ -Acute Uncomplicated (without systemic symptoms) or Complicated (systemic symptoms)? @ -uncomplicated Side effects of treatment? @ -No Exacerbation, Progression, or Severe Exacerbation? @ -No Poses a threat to life or bodily function? How? (Chest pain, [place], [place], pneumonia, PE, COPD, DKA, ARF, appy, cholecystitis, CVA, Diverticulitis, Homicidal, Suicidal, threat to staff... and all critical care pts) @ -No patient talked with EPS and they have developed a safety plan for the patient to be comfortably discharged home. (Sandi Badillo) - Lab Data Lab Results 05/10/23 Range/Units 19:30 Urine Opiates Screen Not Detected (NotDetected) Ur Oxycodone Screen Not Detected (NotDetected) Urine Methadone Screen Not Detected (NotDetected) Ur Barbiturates Screen Not Detected (NotDetected) U Tricyclic Antidepress Not Detected (NotDetected) Ur Phencyclidine Scrn Not Detected (NotDetected) Ur Amphetamines Screen Not Detected (NotDetected) U Methamphetamines Scrn Not Detected (NotDetected) U Benzodiazepines Scrn Detected H (NotDetected) Urine Cocaine Screen Not Detected (NotDetected) U Marijuana (THC) Screen Not Detected (NotDetected) Disposition <Harjinder Mejía - Last Filed: 05/11/23 12:05> Is patient prescribed a controlled substance at d/c from ED?: No Time of Disposition: 12:09 <Sandi Badillo - Last Filed: 05/11/23 12:11> Clinical Impression: Acute anxiety Narrative: Please return to the Emergency Department if symptoms worsen or any other concerns. (Sandi Badillo) Disposition: HOME SELF-CARE Condition: Good Referrals: None,Stated [Primary Care Provider] - 1-2 days
[2023-05-10 20:12] LABS: Amphetamine Screen,Urine Not Detected (NotDetected); Barbiturate Screen,Urine Not Detected (NotDetected); Benzodiazepines Screen,Urine Detected (NotDetected); Cocaine Screen,Urine Not Detected (NotDetected); Methadone Screen, Urine Not Detected (NotDetected); Opiate Screen,Urine Not Detected (NotDetected); Oxycodone Screen, Urine Not Detected (NotDetected); Phencyclidine Screen,Urine Not Detected (NotDetected); Tricyclic Antidepressant,Urine Not Detected (NotDetected); Urn Cannabinoid Scrn Not Detected (NotDetected)
[2023-05-10] MEDS: IBUPROFEN 600 MG TAB PO STA (21:17)
[2023-05-10] MEDS: ALPRAZolam 0.5 MG TAB PO STA (21:17)
[2023-05-11] MEDS: IBUPROFEN 600 MG TAB PO STA (07:46)
[2023-05-11 08:24] VITALS: TEMP 98.4
[2023-05-11] MEDS: ALPRAZolam 0.5 MG TAB PO STA ×2 (09:03→09:16)
[2023-05-11 12:52] VITALS: BP 128/76; PULSE 74; RESP 18
== END 2023-05-11 12:23 | disposition home or self-care (01) ==
LOC: EC 18:41
DX: F41.9 Anxiety disorder, unspecified (principal); R51.9 Headache, unspecified
CPT/HCPCS: 80306; 82075; 99285